=== PATIENT | male | born 1960 | race American Indian/Alaskan Native ===

== ENCOUNTER 2017-11-25 01:27 | Emergency (ER) | payer OTHER ==
--- NOTE | 2017-11-25 03:18 | XRay Report ---
FINAL REPORT PROCEDURE: XR CHEST ROUTINE 2V TECHNIQUE: Chest radiograph anteroposterior view. CPT 30170 HISTORY: swollen extreities COMPARISON: No prior studies are available for comparison. FINDINGS: Heart: Normal. Mediastinum/Vessels: Normal. Lungs/Pleural space: Normal. Bony thorax: No acute osseous abnormality. Life support devices: None. IMPRESSION: No acute cardiopulmonary abnormality.
[2017-11-25 03:25] LABS: Basophils # (Auto) 0.1 K/mm3 (0.0-0.1); Basophils % (Auto) 0.7 % (0.0-1.8); Eosinophils # (Auto) 0.2 K/mm3 (0.0-0.4); Eosinophils % (Auto) 2.1 % (0.0-4.3); Hematocrit 40.8 % (35.5-45.6); Hemoglobin 13.7 gm/dl (11.8-15.2); Lymphocytes # (Auto) 3.2 K/mm3 (1.2-5.4); Lymphocytes % (Auto) 38.8 % (13.4-35.0); Mean Corpuscular HGB Conc 34 % (32-34); Mean Corpuscular Hemoglobin 29 pg (28-32); Mean Corpuscular Volume 87 fl (84-94); Monocytes # (Auto) 1.1 K/mm3 (0.0-0.8); Monocytes % (Auto) 13.8 % (0.0-7.3); Platelet Count 281 K/mm3 (140-440); Red Blood Count 4.69 M/mm3 (3.65-5.03); Red Cell Distribution Width 17.4 % (13.2-15.2)
[2017-11-25 03:41] LABS: Alanine Aminotransferase 23 units/L (7-56); Albumin 3.5 g/dL (3.9-5); BUN/Creatinine Ratio 12; Blood Urea Nitrogen 11 mg/dL (9-20); Calcium 8.9 mg/dL (8.4-10.2); Hemolysis Index 27
[2017-11-25 03:57] LABS: Bilirubin,Urine NEG (Negative); Blood,Urine NEG (Negative); Color,Urine Yellow (Yellow); Mucus,Urine FEW /HPF; Protein,Urine <15 mg/dL mg/dL (Negative); Urobilinogen,Urine < 2.0 mg/dL (<2.0); WBC,Urine < 1.0 /HPF (0.0-6.0)
[2017-11-25 07:31] VITALS: BP 122/73
--- NOTE | 2017-11-25 07:37 | Emergency Department Report ---
ED General Adult HPI - General Chief complaint: Extremity Injury, Lower Stated complaint: SWOLLEN LEGS/FEET,PHLEMEN Time Seen by Provider: 11/25/17 07:30 Source: patient Mode of arrival: Ambulatory Limitations: No Limitations - History of Present Illness Initial comments: Patient is 57-year-old male with no significant past medical history except for diabetes. Patient presented to the ER was multiple complaints. He stated that he has been having bilateral lower extremity swelling for more than 2 month now. He also stated that his been having cough productive with greenish sputum. He also stated that he does not have any place to stay in now. Patient denied any fever, chest pain or shortness of breath. Severity scale (0 -10): 0 - Related Data Previous Rx's Medication Instructions Recorded Last Taken Type Amoxicillin [Amoxicillin TAB] 875 mg PO BID #14 tablet 11/25/17 Unknown Rx Furosemide [Lasix] 20 mg PO BID #60 tablet 11/25/17 Unknown Rx Potassium Chloride [K-Dur] 10 meq PO QDAY #15 tablet 11/25/17 Unknown Rx Prednisone [predniSONE (Alfred) ER 40 mg PO QDAY #40 tablet. 11/25/17 Unknown Rx TAB] Allergies Allergy/AdvReac Type Severity Reaction Status Date / Time No Known Allergies Allergy Unverified 11/25/17 02:40 ED Review of Systems ROS: Stated complaint: SWOLLEN LEGS/FEET,PHLEMEN Other details as noted in HPI Comment: All other systems reviewed and negative Constitutional: denies: chills, fever Respiratory: cough. denies: orthopnea, shortness of breath, SOB with exertion, SOB at rest, wheezing Cardiovascular: denies: chest pain, palpitations, dyspnea on exertion, orthopnea Gastrointestinal: abdominal pain. denies: nausea, vomiting, hematemesis Musculoskeletal: denies: back pain Neurological: denies: headache, weakness, numbness, paresthesias ED Past Medical Hx - Past Medical History Previous Medical History?: Yes Hx Diabetes: Yes Hx Asthma: Yes - Surgical History Past Surgical History?: No - Social History Smoking Status: Former Smoker Substance Use Type: None - Medications Home Medications: Home Medications Medication Instructions Recorded Confirmed Last Taken Type Amoxicillin [Amoxicillin TAB] 875 mg PO BID #14 tablet 11/25/17 Unknown Rx Furosemide [Lasix] 20 mg PO BID #60 tablet 11/25/17 Unknown Rx Potassium Chloride [K-Dur] 10 meq PO QDAY #15 tablet 11/25/17 Unknown Rx Prednisone [predniSONE (Alfred) ER 40 mg PO QDAY #40 tablet. 11/25/17 Unknown Rx TAB] ED Physical Exam - General Limitations: No Limitations General appearance: alert, in no apparent distress - Head Head exam: Present: atraumatic, normocephalic, normal inspection - Eye Eye exam: Present: normal appearance, PERRL - ENT ENT exam: Present: normal exam, normal orophraynx, mucous membranes moist - Neck Neck exam: Present: normal inspection, full ROM. Absent: tenderness, meningismus, lymphadenopathy, thyromegaly - Respiratory Respiratory exam: Present: normal lung sounds bilaterally. Absent: respiratory distress, wheezes, rales, rhonchi, stridor, chest wall tenderness, accessory muscle use, decreased breath sounds, prolonged expiratory - Cardiovascular Cardiovascular Exam: Present: regular rate, normal rhythm, normal heart sounds - GI/Abdominal GI/Abdominal exam: Present: soft, normal bowel sounds. Absent: distended, tenderness, guarding, rebound, rigid, organomegaly, mass, bruit, pulsatile mass , hernia - Extremities Exam Extremities exam: Present: normal inspection, full ROM, normal capillary refill - Back Exam Back exam: Present: normal inspection, full ROM. Absent: tenderness, CVA tenderness (R), CVA tenderness (L), muscle spasm, paraspinal tenderness, vertebral tenderness, rash noted - Neurological Exam Neurological exam: Present: alert, oriented X3, CN II-XII intact, normal gait, reflexes normal - Psychiatric Psychiatric exam: Present: normal affect, normal mood. Absent: homicidal ideation, suicidal ideation - Skin Skin exam: Present: warm, intact, normal color ED Course Vital Signs 11/25/17 11/25/17 11/25/17 02:19 07:30 07:31 Temperature 98.6 F 97.9 F Pulse Rate 86 85 Respiratory 18 15 15 Rate Blood Pressure 112/55 Blood Pressure 122/73 [Left] O2 Sat by Pulse 96 100 100 Oximetry - Reevaluation(s) Reevaluation #1: 11/25/17 07:41 Patient is sleeping comfortably in no acute distress. I consulted social service for possible placement. ED Medical Decision Making - Lab Data Result diagrams: 11/25/17 02:57 11/25/17 02:57 - EKG Data -: EKG Interpreted by Pr EKG shows normal: sinus rhythm Rate: normal - EKG Data Interpretation: no acute changes - Radiology Data Radiology results: report reviewed Referring Physician: KRISTYN KNIGHT Patient Name: DEBRA STROUD Date of : 1960 Sex: Male Report Date: 2017-11-25 Report Status: Finalized Findings [facility] [address] [place] [address] XRay Report Signed Patient: DEBRA STROUD MR#: [id number] : 1960 Acct:[id number] Age/Sex: 57 / M ADM Date: 11/25/17 Loc: ED Attending Dr: Ordering Physician: KRISTYN KNIGHT MD Date of Service: 11/25/17 Procedure(s): XR chest routine 2V Accession Number(s): [id number] cc: KRISTYN KNIGHT MD Fluoro Time In Minutes: FINAL REPORT PROCEDURE: XR CHEST ROUTINE 2V TECHNIQUE: Chest radiograph anteroposterior view. CPT 54666 HISTORY: swollen extreities COMPARISON: No prior studies are available for comparison. FINDINGS: Heart: Normal. Mediastinum/Vessels: Normal. Lungs/Pleural space: Normal. Bony thorax: No acute osseous abnormality. Life support devices: None. IMPRESSION: No acute cardiopulmonary abnormality. Transcribed By: [facility] Dictated By: TATO HARPER MD Electronically Authenticated By: TATO HARPER MD Signed Date/Time: 11/25/17312 DD/ 2 TD/TT: 11/25/17312 Critical care attestation.: If time is entered above; I have spent that time in minutes in the direct care of this critically ill patient, excluding procedure time. ED Disposition Clinical Impression: Acute bronchitis, Peripheral edema Disposition: DC-01 TO HOME OR SELFCARE Is pt being admited?: No Condition: Stable Instructions: Acute Bronchitis (ED), Leg Edema (ED) Prescriptions: Amoxicillin [Amoxicillin TAB] 875 mg PO BID #14 tablet Furosemide [Lasix] 20 mg PO BID #60 tablet Potassium Chloride [K-Dur] 10 meq PO QDAY #15 tablet Prednisone [predniSONE (Alfred) ER TAB] 40 mg PO QDAY #40 tablet. Referrals: DEBRA OCHOA MD [Primary Care Provider] - 3-5 Days
== END 2017-11-25 07:30 | disposition home or self-care (01) ==
LOC: ED 01:27
DX: J20.9 Acute bronchitis, unspecified (principal); R60.9 Edema, unspecified; E11.9 Type 2 diabetes mellitus without complications; Z87.891 Personal history of nicotine dependence
CPT/HCPCS: 36415; 71046; 80053; 81001; 83880; 85025; 93005; 93010; 99284

== ENCOUNTER 2017-12-05 00:04 | Emergency (ER) | payer SELFPAY ==
--- NOTE | 2017-12-05 08:34 | Emergency Department Report ---
ED General Adult HPI - General Chief complaint: Extremity Injury, Lower Stated complaint: BILATERAL LEG PAIN Time Seen by Provider: 12/05/17 07:05 Source: patient Mode of arrival: Ambulatory Limitations: No Limitations - History of Present Illness Initial comments: This is a 57-year-old male nontoxic, well nourished in appearance, no acute signs of distress presents to the ED with c/o of bilateral lower extremities swelling x3 months. Patient stated he was seen 2 weeks ago and was prescribed medications but stated he did not fill them. Patient denies chest pain, shortness of breathe, fever, chills, headache, nausea, vomiting, back pain, abdominal pain, headache, stiff neck, numbness or tingling. Patient denies any calf pain or tenderness. Patient denies any recent travels or long car rides. PMH includes DM. Patient also stated was no place to sleep so he want to sleep and rest now. -: month(s) (3) Radiation: non-radiation Consistency: constant Improves with: none Worsens with: none Associated Symptoms: denies other symptoms. denies: confusion, chest pain, cough, diaphoresis, fever/chills, headaches, loss of appetite, malaise, nausea/ vomiting, rash, seizure, shortness of breath, syncope, weakness Treatments Prior to Arrival: none - Related Data Previous Rx's Medication Instructions Recorded Last Taken Type Amoxicillin [Amoxicillin TAB] 875 mg PO BID #14 tablet 11/25/17 Unknown Rx Furosemide [Lasix] 20 mg PO BID #60 tablet 11/25/17 Unknown Rx Potassium Chloride [K-Dur] 10 meq PO QDAY #15 tablet 11/25/17 Unknown Rx Prednisone [predniSONE (Alfred) ER 40 mg PO QDAY #40 tablet. 11/25/17 Unknown Rx TAB] Allergies Allergy/AdvReac Type Severity Reaction Status Date / Time uti med Allergy Unknown Uncoded 12/05/17 01:17 ED Review of Systems ROS: Stated complaint: BILATERAL LEG PAIN Other details as noted in HPI Constitutional: denies: chills, fever Eyes: denies: eye pain, eye discharge, vision change ENT: denies: ear pain, throat pain Respiratory: denies: cough, shortness of breath, wheezing Cardiovascular: denies: chest pain, palpitations Endocrine: no symptoms reported Gastrointestinal: denies: abdominal pain, nausea, diarrhea Genitourinary: denies: urgency, dysuria Musculoskeletal: denies: back pain, joint swelling, arthralgia Skin: denies: rash, lesions Neurological: denies: headache, weakness, paresthesias Psychiatric: denies: anxiety, depression Hematological/Lymphatic: denies: easy bleeding, easy bruising ED Past Medical Hx - Past Medical History Previous Medical History?: Yes Hx Diabetes: Yes Hx Asthma: Yes - Surgical History Past Surgical History?: No - Social History Smoking Status: Never Smoker Substance Use Type: None - Medications Home Medications: Home Medications Medication Instructions Recorded Confirmed Last Taken Type Amoxicillin [Amoxicillin TAB] 875 mg PO BID #14 tablet 11/25/17 Unknown Rx Furosemide [Lasix] 20 mg PO BID #60 tablet 11/25/17 Unknown Rx Potassium Chloride [K-Dur] 10 meq PO QDAY #15 tablet 11/25/17 Unknown Rx Prednisone [predniSONE (Alfred) ER 40 mg PO QDAY #40 tablet. 11/25/17 Unknown Rx TAB] ED Physical Exam - General Limitations: No Limitations General appearance: alert, in no apparent distress - Head Head exam: Present: atraumatic, normocephalic - Eye Eye exam: Present: normal appearance Pupils: Present: normal accommodation - ENT ENT exam: Present: normal exam, mucous membranes moist - Neck Neck exam: Present: normal inspection, full ROM. Absent: tenderness, meningismus, lymphadenopathy - Respiratory Respiratory exam: Present: normal lung sounds bilaterally. Absent: respiratory distress, wheezes, rales, rhonchi, stridor, chest wall tenderness, accessory muscle use, decreased breath sounds, prolonged expiratory - Cardiovascular Cardiovascular Exam: Present: regular rate, normal rhythm, normal heart sounds. Absent: bradycardia, tachycardia, irregular rhythm, systolic murmur, diastolic murmur, rubs, gallop - GI/Abdominal GI/Abdominal exam: Present: soft, normal bowel sounds. Absent: distended, tenderness, guarding, rebound, rigid, diminished bowel sounds - Rectal Rectal exam: Present: deferred - Extremities Exam Extremities exam: Present: normal inspection, full ROM, normal capillary refill , pedal edema. Absent: tenderness, joint swelling, calf tenderness - Expanded Lower Extremity Exam Left Hip exam: Present: normal inspection (bilateral exam), full ROM. Absent: tenderness, swelling, abrasion Upper Leg exam: Present: normal inspection (bilateral exam), full ROM. Absent: tenderness, swelling Knee exam: Present: normal inspection (bilateral exam), full ROM. Absent: tenderness, swelling Lower Leg exam: Present: normal inspection (bilateral exam), full ROM, swelling (2+). Absent: tenderness, abrasion, laceration, ecchymosis, deformity, crepidus , dislocation, erythema, palpable cord, Marcie's sign Ankle exam: Present: normal inspection (bilateral exam), full ROM, swelling (2+) . Absent: tenderness, abrasion, laceration, ecchymosis, deformity, crepidus, dislocation, erythema, anterior draw sign Foot/Toe exam: Present: normal inspection (bilateral exam), full ROM, swelling ( 2+). Absent: tenderness, abrasion, laceration, ecchymosis, deformity, crepidus , dislocation, erythema, amputation, puncture wound, foreign body, calcaneal tenderness, tenderness at base of 5th metatarsal, nail avulsion, subungual hematoma Neuro vascular tendon exam: Present: no vascular compromise (bilateral exam). Absent: pulse deficit, abnormal cap refill, motor deficit, sensory deficit, tendon deficit, extremity cold to touch, pallor, abnormal 2-point discrimination , decreased fine/light touch, foot drop, peroneal nerve deficit, significant pain with passive ROM of distal joint Gait: Positive: observed and normal - Back Exam Back exam: Present: normal inspection, full ROM - Neurological Exam Neurological exam: Present: alert, oriented X3, normal gait - Psychiatric Psychiatric exam: Present: normal affect, normal mood - Skin Skin exam: Present: warm, dry, intact, normal color. Absent: rash ED Course Vital Signs 12/05/17 01:09 Temperature 98.2 F Pulse Rate 80 Respiratory 18 Rate Blood Pressure 119/66 O2 Sat by Pulse 97 Oximetry - Reevaluation(s) Reevaluation #1: 12/05/17 08:36 Patient is speaking in full sentences with no signs of distress noted. ED Medical Decision Making - Lab Data Result diagrams: 12/05/17 08:33 12/05/17 08:33 - Medical Decision Making This is a 57-year-old male that presents with lower extremities edema. Patient stable was examined by me. Labs obtained. UA obtained. Patient was instructed to take medication as he stated that he still had the prescriptions. There is no calf tenderness or calf redness. Nontender to touch. Wells criteria 0 points for DVT/SVT. Patient was referred to Follow-up with a primary care doctor in 3-5 days or if symptoms worsen and continue return to emergency room as soon as possible. At time of discharge, the patient does not seem toxic or ill in appearance. No acute signs of distress noted. Patient agrees to discharge treatment plan of care. No further questions noted by the patient. Critical care attestation.: If time is entered above; I have spent that time in minutes in the direct care of this critically ill patient, excluding procedure time. ED Disposition Clinical Impression: Lower extremity edema Disposition: TO HOME OR SELFCARE Is pt being admited?: No Does the pt Need Aspirin: No Condition: Stable Instructions: Leg Edema (ED) Additional Instructions: Follow-up with a primary care doctor in 3-5 days or if symptoms worsen and continue return to emergency room as soon as possible. Take medications that was prescribed to you during your previous visit. Referrals: JEANE TAYLOR MD [Primary Care Provider] - 3-5 Days HOSSEIN VILLAGOMEZ MD [Staff Physician] - 3-5 Days [facility] [Outside] - 3-5 Days [facility] [Outside] - 3-5 Days
[2017-12-05 08:45] LABS: Basophils % (Auto) 0.5 % (0.0-1.8); Eosinophils # (Auto) 0.2 K/mm3 (0.0-0.4); Eosinophils % (Auto) 1.9 % (0.0-4.3); Hematocrit 43.5 % (35.5-45.6); Hemoglobin 14.6 gm/dl (11.8-15.2); Lymphocytes % (Auto) 30.5 % (13.4-35.0); Mean Corpuscular HGB Conc 34 % (32-34); Mean Corpuscular Hemoglobin 29 pg (28-32); Mean Corpuscular Volume 88 fl (84-94); Monocytes # (Auto) 1.2 K/mm3 (0.0-0.8); Monocytes % (Auto) 12.1 % (0.0-7.3); Platelet Count 303 K/mm3 (140-440); Red Blood Count 4.97 M/mm3 (3.65-5.03); Red Cell Distribution Width 17.5 % (13.2-15.2)
[2017-12-05 08:47] LABS: Bilirubin,Urine NEG (Negative); Blood,Urine NEG (Negative); Color,Urine Straw (Yellow); Mucus,Urine FEW /HPF; Protein,Urine <15 mg/dL mg/dL (Negative); Urobilinogen,Urine < 2.0 mg/dL (<2.0)
[2017-12-05 08:58] LABS: BUN/Creatinine Ratio 14; Blood Urea Nitrogen 13 mg/dL (9-20); Calcium 8.9 mg/dL (8.4-10.2); Hemolysis Index 10
[2017-12-05 09:03] LABS: Alanine Aminotransferase 20 units/L (7-56); Albumin 3.5 g/dL (3.9-5)
[2017-12-05 09:04] LABS: Bilirubin,Direct < 0.2 mg/dL (0-0.2)
[2017-12-05 09:26] VITALS: BP 120/71
== END 2017-12-05 09:25 | disposition home or self-care (01) ==
LOC: ED 00:04
DX: R60.0 Localized edema (principal); E11.9 Type 2 diabetes mellitus without complications; J45.909 Unspecified asthma, uncomplicated; Z88.8 Allergy status to other drugs, medicaments and biological substances
CPT/HCPCS: 36415; 80048; 80074; 81001; 82962; 83880; 85025; 99283